=== PATIENT | male | born 1960 | race Caucasian/White ===

== ENCOUNTER → 2021-03-09 | Day surgery (SDC) | payer BC ==
[~2021-03-09] MED LIST: FLOMAX0.4 MG PO; METOCLOPRAMIDE HCL 10 MG/2ML VIAL ONE; SPIRONOLACTONE25 MG PO
[2021-03-09 15:45] VITALS: BP 117/76
== END | disposition home or self-care (01) ==
LOC: OR 13:13
PROVIDERS: ATTEND Internal Medicine Gastroenterology
DX: K70.30 Alcoholic cirrhosis of liver without ascites (principal); I85.10 Secondary esophageal varices without bleeding; K76.6 Portal hypertension; K31.89 Other diseases of stomach and duodenum; C22.8 Malignant neoplasm of liver, primary, unspecified as to type; C78.00 Secondary malignant neoplasm of unspecified lung; B19.20 Unspecified viral hepatitis C without hepatic coma; F17.210 Nicotine dependence, cigarettes, uncomplicated; Z01.812 Encounter for preprocedural laboratory examination; Z20.822 Contact with and (suspected) exposure to COVID-19; Z86.010 Personal history of colon polyps; Z80.9 Family history of malignant neoplasm, unspecified
CPT/HCPCS: 43239; 43244; 93005; C9113; J2765; U0002

== ENCOUNTER → 2021-04-02 | Outpatient (CLI) | payer OTHER ==
[~2021-04-02] MED LIST changes: +FUROSEMIDE40 MG PO; +HYDROCODON-ACE1 EAC9 PO; +LACTULOSE20 GM/30 M PO; -METOCLOPRAMIDE HCL 10 MG/2ML VIAL ONE
[2021-04-02 13:00] LABS: INR 1.83; PROTHROMBIN TIME 22.6 seconds (11.9-14.5)
[2021-04-02 13:01] LABS: PARTIAL THROMBOPLASTIN TIME 38.8 seconds (23.8-35.5)
[2021-04-02 16:30] LABS: BODY FLUID APPEARANCE CLOUDY; BODY FLUID COLOR RED; BODY FLUID TYPE PERITONEAL; RBC,BODY FLUID 12000 cells/uL; WBC,BODY FLUID 524 cells/uL
[2021-04-02 16:55] LABS: NEUTROPHILS,BODY FLUID 60 %; OTHER CELLS,BODY FLUID 30 %
[2021-04-02 16:57] LABS: LYMPHOCYTES,BODY FLUID 6 %; MONO/MACROPHG,BODY FLUID 4 %
== END ==
LOC: US 12:11
PROVIDERS: ATTEND Internal Medicine Hematology & Oncology
DX: K70.31 Alcoholic cirrhosis of liver with ascites (principal); C22.0 Liver cell carcinoma; R60.0 Localized edema; B18.2 Chronic viral hepatitis C
CPT/HCPCS: 36415; 49083; 84157; 85014; 85049; 85610; 85730; 87070; 87205; 88112; 88305; 89051